=== PATIENT | male | born 1940 | race Caucasian/White ===

== ENCOUNTER 2016-10-15 06:42 | Day surgery (SDC) | payer OTHER ==
[~2016-10-15] VITALS: Ht 172.7 cm; Wt 90.9 kg
[~2016-10-15 06:42] MED LIST: ACTOS45 MG PO; ADVAIR 250-501 EACH IH; AVAPRO150 MG PO; DITROPAN XL5 MG PO; FISH OIL 1,0001 EAC7 PO; FLUTICASONE PRO16 G1; GLIPIZIDE10 M1 PO; GLIPIZIDE10 MG PO; HYDROCHLOROTHIA25 MG PO; LIPITOR20 MG PO; MAG6464 M2 PO; NEURONTIN300 MG PO; NITROGLYCERIN0.4 MG PO; PLAVIX75 MG PO; PRINIVIL40 MG PO; PROCRIT10000 UNI1 IV; PROCRIT10000 UNI1 SC; PROTONIX40 MG PO; PROVENTIL17 GM; SINEQUAN10 MG PO; SINEQUAN25 MG PO; SPIRIVA1 INHALATI IH; TESSALON PERLE100 MG PO; TOPROL XL50 MG PO; VELTASSA8.4 GM PO; VITAMIN D32000 UNI1 PO; ZYRTEC10 M3 PO
[2016-10-15 07:35] LABS: POINT-OF-CARE METER ID UU13113694; POINT-OF-CARE USER ID AHSRSCSLC11
[2016-10-17] MEDS ORDERED: PROVENTIL HFA6.7 GM IH (11:39)
[2016-10-17] MEDS ORDERED: FLONASE16 G1 BOTH NARES (11:40)
[2016-10-17] MEDS ORDERED: ADVAIR 250/501 DISK IH (11:40)
== END 2016-10-15 08:45 | disposition home or self-care (01) ==
LOC: PAIN 06:42 → SDC 07:30 → PAIN 08:45
PROVIDERS: Anesthesiology Pain Medicine
DX: M47.816 Spondylosis without myelopathy or radiculopathy, lumbar region (principal); M54.5 Low back pain; M51.36 Other intervertebral disc degeneration, lumbar region; M46.1 Sacroiliitis, not elsewhere classified; M53.3 Sacrococcygeal disorders, not elsewhere classified; M50.30 Other cervical disc degeneration, unspecified cervical region; E78.5 Hyperlipidemia, unspecified; K21.9 Gastro-esophageal reflux disease without esophagitis; J45.909 Unspecified asthma, uncomplicated; E11.40 Type 2 diabetes mellitus with diabetic neuropathy, unspecified; I10 Essential (primary) hypertension; E66.3 Overweight; Z68.32 Body mass index [BMI] 32.0-32.9, adult; Z79.02 Long term (current) use of antithrombotics/antiplatelets; Z87.891 Personal history of nicotine dependence
CPT/HCPCS: 82948; J1030; J3010; S0020

== ENCOUNTER 2016-10-22 06:47 | Day surgery (SDC) | payer OTHER ==
[~2016-10-22] VITALS: Ht 172.7 cm; Wt 90.9 kg
[~2016-10-22 06:47] MED LIST changes: +ADVAIR 250/501 DISK IH; +FLONASE16 G1 BOTH NARES; +PROVENTIL HFA6.7 GM IH
[2016-10-22 08:05] LABS: POINT-OF-CARE METER ID UU13113694
== END 2016-10-22 09:23 | disposition home or self-care (01) ==
LOC: PAIN 06:47 → SDC 07:30 → PAIN 07:30
PROVIDERS: Anesthesiology Pain Medicine
DX: M47.816 Spondylosis without myelopathy or radiculopathy, lumbar region (principal); M54.5 Low back pain; M46.1 Sacroiliitis, not elsewhere classified; M51.36 Other intervertebral disc degeneration, lumbar region; M53.3 Sacrococcygeal disorders, not elsewhere classified; E78.5 Hyperlipidemia, unspecified; K21.9 Gastro-esophageal reflux disease without esophagitis; E11.40 Type 2 diabetes mellitus with diabetic neuropathy, unspecified; D51.0 Vitamin B12 deficiency anemia due to intrinsic factor deficiency; I10 Essential (primary) hypertension; E66.3 Overweight; Z68.32 Body mass index [BMI] 32.0-32.9, adult; Z87.891 Personal history of nicotine dependence; Z79.02 Long term (current) use of antithrombotics/antiplatelets
CPT/HCPCS: 82948; J1030; J2250; J3010; S0020